=== PATIENT | male | born 1970 | race Caucasian/White ===

== ENCOUNTER 2017-12-24 20:33 | Emergency (ER) | payer OTHER ==
[~2017-12-24] VITALS: Ht 177.8 cm; Wt 116.4 kg
[~2017-12-24 20:33] MED LIST: GLIM2TAB PO; INFL100V IV; LISI-338 PO; METF500T PO
--- NOTE | 2017-12-24 20:59 | ED.ADGEN ---
Past History Past Medical History: Arthritis Past Surgical History: No Surgical History Smoking: Non-smoker Alcohol Use: None Drug Use: None Adult General Chief Complaint Chief Complaint LLQ pain HPI HPI Patient was well until hour ago when he had sudden onset of left lower quadrant pain. Pain was sharp, constant, unrelenting, 9/10 severity. Pain is non radiating. He's had nausea associated with the pain, no vomiting. He's noted a change in color of his urine. His urine is more dark. He has no prior history of kidney stones. Review of Systems Review of Systems Constitutional: Denies fever or chills Eyes: Denies change in visual acuity, redness, or eye pain HENT: Denies nasal congestion or sore throat Respiratory: Denies cough or shortness of breath Cardiovascular: Denies chest pain or palpitations GI: with LLQ abdominal pain, nausea, no vomiting, bloody stools or diarrhea. No flank pain : Denies dysuria or hematuria Musculoskeletal: Denies back pain or joint pain Integument: Denies rash or skin lesions Neurologic: Denies headache, focal weakness or sensory changes Endocrine: Denies polyuria or polydipsia All other systems were reviewed and found to be within normal limits, except as documented in this note. Current Medications Current Medications Current Medications Medications (Trade) Dose Ordered Sig/[place]ileth Start Time Stop Time Status Last Admin Dose Admin Acetaminophen/ Hydrocodone Bitart (Lortab 5/325) 1 tab 1X ONCE 12/25/17 00:15 12/25/17 00:29 DC 12/25/17 00:26 1 TAB Ceftriaxone Sodium 1 gm/ Sodium Chloride 50 ml @ 100 mls/hr 1X ONCE 12/24/17 22:45 12/24/17 22:45 DC Ceftriaxone Sodium (Rocephin) 1 gm 1X ONCE 12/24/17 22:45 12/24/17 22:46 DC 12/24/17 23:17 1 GM Ketorolac Tromethamine (Toradol 30mg Vial) 30 mg 1X ONCE 12/24/17 21:00 12/24/17 21:01 DC 12/24/17 21:22 30 MG Morphine Sulfate (Morphine 4mg Syringe) 8 mg 1X ONCE 12/24/17 23:00 12/24/17 23:07 DC 12/24/17 23:22 8 MG Ondansetron HCl (Zofran) 4 mg 1X ONCE 12/24/17 21:00 12/24/17 21:01 DC 12/24/17 21:15 4 MG Sodium Chloride 1,000 ml @ 1,000 mls/hr 1X ONCE 12/24/17 23:00 12/24/17 23:59 DC 12/24/17 23:00 1,000 MLS/HR Tamsulosin HCl (Flomax) 0.4 mg 1X ONCE 12/24/17 22:45 12/24/17 22:46 DC 12/24/17 23:16 0.4 MG Allergies Allergies Allergies Coded Allergies Type Severity Reaction Last Updated Verified No Known Drug Allergies 11/02/14 No Physical Exam Physical Exam Constitutional: Well developed, well nourished, no acute distress, non-toxic appearance. HENT: Normocephalic, atraumatic, bilateral external ears normal, oropharynx moist, no oral exudates, nose normal. Eyes: PERRLA, EOMI, conjunctiva normal, no discharge. Neck: Normal range of motion, no tenderness, supple, no stridor. Cardiovascular:Heart rate regular rhythm, no murmur Lungs & Thorax: Bilateral breath sounds clear to auscultation Abdomen: Bowel sounds normal, soft, with LLQ tenderness, no masses, no pulsatile masses. Skin: Warm, dry, no erythema, no rash. Back: No tenderness, no CVA tenderness. Extremities: No tenderness, no cyanosis, no clubbing, ROM intact, no edema. Neurologic: Alert and oriented X 3, normal motor function, normal sensory function, no focal deficits noted. Psychologic: Affect normal, judgement normal, mood normal. Current Patient Data Vital Signs Vital Signs Date Time Temp Pulse Resp B/P (MAP) Pulse Ox O2 Delivery O2 Flow Rate FiO2 12/25/17 00:26 19 97 Room Air 12/25/17 00:25 62 149/83 (105) 12/24/17 23:30 2.0 12/24/17 20:34 97.8 Lab Results Laboratory Tests Test 12/24/17 20:45 12/24/17 21:12 Urine Collection Type Unknown Urine Color Brown Urine Clarity Bloody Urine pH 7.0 Urine Specific [place] 1.025 Urine Protein >100 mg/dl (NEG-TRACE) Urine Glucose (UA) Neg mg/dL (NEG) Urine Ketones (Stick) Trace mg/dL (NEG) Urine Blood Large (NEG) Urine Nitrite Neg (NEG) Urine Bilirubin Neg (NEG) Urine Urobilinogen Dipstick 1 mg/dL (0.2 mg/dL) Urine Leukocyte Esterase Neg (NEG) Urine RBC >40 /HPF (0-2) Urine WBC 1-4 /HPF (0-4) Urine Squamous Epithelial Cells Occ /LPF Urine Amorphous Sediment Present /HPF Urine Bacteria 0 /HPF (0-FEW) White Blood Count 11.2 x10^3/uL (4.0-11.0) H Red Blood Count 5.69 x10^6/uL (4.30-5.70) Hemoglobin 16.4 g/dL (13.0-17.5) Hematocrit 47.0 % (39.0-53.0) Mean Corpuscular Volume 83 fL (79-100) Mean Corpuscular Hemoglobin 29 pg (25-35) Mean Corpuscular Hemoglobin Concent 35 g/dL (31-37) Red Cell Distribution Width 13.3 % (11.5-14.5) Platelet Count 263 x10^3/uL (140-400) Neutrophils (%) (Auto) 54 % (31-73) Lymphocytes (%) (Auto) 35 % (24-48) Monocytes (%) (Auto) 9 % (0-9) Eosinophils (%) (Auto) 2 % (0-3) Basophils (%) (Auto) 1 % (0-3) Neutrophils # (Auto) 6.0 x10^3uL (1.8-7.7) Lymphocytes # (Auto) 3.9 x10^3/uL (1.0-4.8) Monocytes # (Auto) 1.0 x10^3/uL (0.0-1.1) Eosinophils # (Auto) 0.2 x10^3/uL (0.0-0.7) Basophils # (Auto) 0.1 x10^3/uL (0.0-0.2) Sodium Level 140 mmol/L (136-145) Potassium Level 4.8 mmol/L (3.5-5.1) Chloride Level 105 mmol/L (98-107) Carbon Dioxide Level 27 mmol/L (21-32) Anion Gap 8 (6-14) Blood Urea Nitrogen 21 mg/dL (8-26) Creatinine 0.9 mg/dL (0.7-1.3) Estimated GFR (Cockcroft-Gault) 90.8 BUN/Creatinine Ratio 23 (6-20) H Glucose Level 129 mg/dL (70-99) H Calcium Level 9.4 mg/dL (8.5-10.1) Total Bilirubin 0.7 mg/dL (0.2-1.0) Aspartate Amino Transferase (AST) 67 U/L (15-37) H Alanine Aminotransferase (ALT) 111 U/L (16-63) H Alkaline Phosphatase 123 U/L (46-116) H Total Protein 7.6 g/dL (6.4-8.2) Albumin 4.1 g/dL (3.4-5.0) Albumin/Globulin Ratio 1.2 (1.0-1.7) Lipase 95 U/L (73-393) EKG EKG [] Radiology/Procedures Radiology/Procedures [address] [id number] IMAGING REPORT Signed PATIENT: KYREE HUNT ACCOUNT: [id number] : 1970 LOCATION: ER AGE: 47 SEX: M EXAM STATUS: REG ER ORD. PHYSICIAN: AIDA RICHARDS MD REASON: Left flank pain PROCEDURE: CT ABDOMEN PELVIS WO CONTRAST PQRS Compliance statement: One or more of the following individualized dose reduction techniques were utilized for this examination: 1. Automated exposure control. 2. Adjustment of the mA and/or kV according to patient size. 3. Use of iterative reconstruction technique. Indication:LLQ ABDOMINAL PAIN
NO HX OF STONE IN PAST TECHNIQUE: CT abdomen and pelvis without IV contrast with multiplanar reformats. COMPARISON: None FINDINGS: Limited evaluation of solid abdominal and pelvic organs due to lack of IV contrast. Heart is normal in size. No pericardial or pleural effusion. Clear lung bases. Noncontrast appearance of the liver, spleen, gallbladder, pancreas, adrenals within normal limits. 2.6 cm low attenuating lesion is seen in the interpolar right kidney demonstrating fluid density compatible with simple cysts. 5 mm stone is seen in the distal left ureter causing mild hydroureteronephrosis. No nephrolithiasis. Small bilateral fat-containing hernia. No enlarged retroperitoneal or pelvic adenopathy. No bowel obstruction. Urinary bladder demonstrates no radiopaque stone. There is subtle lucency seen along the anterior urinary bladder wall. No perivesical inflammatory changes. The prostate and seminal vesicles show no large mass. No suspicious bony lesion. IMPRESSION: 1. Obstructing 5 mm stone in the left distal ureter. 2. Subtle lucency seen along the anterior urinary bladder wall which may represent submucosal fat infiltration or emphysema. Clinically correlate with urinalysis for cystitis. Electronically signed by: Andrew Brandon DO (12/24/2017 10:07 PM) [facility] DICTATED AND SIGNED BY: ANDREW BRANDON DO DATE: 12/24/172201 CC: AIDA RICHARDS MD; HECTOR SHIN MD ~ Course & Med Decision Making Course & Med Decision Making Emergency department course Patient presents with left lower abdominal pain DDx-the stone, diverticulitis, colitis, constipation, UTI Patient was stable in the emergency department, improved after IV Toradol, morphine, normal saline and Zofran. Patient had near resolution of his pain. Labs were remarkable for mild leukocytosis and slightly elevated LFTs. UA showed hematuria. CT abdomen and pelvis without contrast showed left distal UVJ stone 5 mm with bladder wall motion consistent with cystitis. Patient was given Rocephin IV and urine sent for culture 23:40 Patient improved after second dose of morphine abdominal pain which from 7/10 to 4/10 severity. Patient will follow-up with outpatient urology evaluation with Dr. Kyree Ochoa. Patient was given prescriptions for Flomax, Keflex, [place], Motrin and Zofran. Final Impression Final Impression Clinical Impression Left renal colic Left ureteral stone Dragon Disclaimer Dragon Disclaimer This electronic medical record was generated, in whole or in part, using a voice recognition dictation system. Departure Departure: Impression: Primary Impression: Left ureteral calculus Additional Impression: Renal colic on left side Disposition: 01 HOME, SELF-CARE Condition: STABLE Referrals: KYREE OCHOA MD Follow-up topmorrow for further evaluation Patient Instructions: Diet for Kidney Stones, Kidney Stones, [id number] Additional Instructions: Follow-up tomorrow for further evaluation If you develop worse pain, vomiting, fevers return to the emergency department immediately Scripts Cephalexin (KEFLEX) 500 Mg Capsule 500 MG PO TID for 7 Days, #21 CAP Prov: AIDA RICHARDS MD 12/24/17 Ondansetron Hcl (ZOFRAN) 4 Mg Tablet 1 TAB PO Q6HRS, #9 TAB Prov: AIDA RICHARDS MD 12/24/17 Tamsulosin Hcl (FLOMAX) 0.4 Mg Cap.er.24h 1 CAP PO DAILY, #10 CAP 0 Refills Prov: AIDA RICHARDS MD 12/24/17 Ibuprofen (IBUPROFEN) 800 Mg Tablet 800 MG PO TIDWMEALHC for 5 Days, #15 MG Prov: AIDA RICHARDS MD 12/24/17 Hydrocodone Bit/Acetaminophen (NORCO 5-325 TABLET) 1 Each Tablet 1 TAB PO PRN Q6HRS PRN for PAIN for 5 Days, #20 TAB 0 Refills Prov: AIDA RICHARDS MD 12/24/17 AIDA RICHARDS MD Dec 24, 2017 20:59
[2017-12-24] MEDS ORDERED: MORPHINE SULFATE 4 MG/ML DISP.SYRIN. IV ONE ×2 (21:00→23:00)
[2017-12-24] MEDS ORDERED: IV NORMAL SALINE 1,000ML 1,000 ML IV ONE ×2 (21:00→23:00)
[2017-12-24] MEDS ORDERED: ONDANSETRON PF 4 MG/2 ML VIAL. IV ONE (21:00)
[2017-12-24] MEDS ORDERED: KETOROLAC 30 MG/ML VIAL. IV ONE (21:00)
[2017-12-24 21:19] LABS: COLOR,URINE BROWN
[2017-12-24 21:20] LABS: BACTERIA,URINE 0 /HPF (0-FEW); BILIRUBIN,URINE NEG (NEG); CLARITY,URINE BLOODY; GLUCOSE,URINE NEG (NEG); NITRITE,URINE NEG (NEG); RBC,URINE >40 /HPF (0-2); SQUAMOUS EPITHELIAL CELL,UR OCC /LPF; UROBILINOGEN,URINE 1 mg/dL (0.2 mg/dL)
[2017-12-24 21:21] LABS: AMORPHOUS SEDIMENT,UR PRESENT /HPF
[2017-12-24 21:27] LABS: BASO # 0.1 x10^3/uL (0.0-0.2); BASO % 1 % (0-3); EOS # 0.2 x10^3/uL (0.0-0.7); EOS % 2 % (0-3); HEMOGLOBIN 16.4 g/dL (13.0-17.5); LYMPH # 3.9 x10^3/uL (1.0-4.8); LYMPH % 35 % (24-48); MEAN CORPUSCULAR HEMOGLOBIN 29 pg (25-35); MEAN CORPUSCULAR HGB CONC 35 g/dL (31-37); MEAN CORPUSCULAR VOLUME 83 fL (79-100); MONO % 9 % (0-9); NEUT % 54 % (31-73); PLATELET COUNT 263 x10^3/uL (140-400); RED BLOOD COUNT 5.69 x10^6/uL (4.30-5.70); RED CELL DISTRIBUTION WIDTH 13.3 % (11.5-14.5); WHITE BLOOD COUNT 11.2 x10^3/uL (4.0-11.0)
[2017-12-24 21:42] LABS: ALBUMIN 4.1 g/dL (3.4-5.0); ALBUMIN/GLOBULIN RATIO 1.2 (1.0-1.7); CALCIUM 9.4 mg/dL (8.5-10.1); CREATININE 0.9 mg/dL (0.7-1.3); GFR 90.8; POTASSIUM 4.8 mmol/L (3.5-5.1); TOTAL BILIRUBIN 0.7 mg/dL (0.2-1.0); TOTAL PROTEIN 7.6 g/dL (6.4-8.2)
--- NOTE | 2017-12-24 22:10 | RAD ---
PQRS Compliance statement: One or more of the following individualized dose reduction techniques were utilized for this examination: 1. Automated exposure control. 2. Adjustment of the mA and/or kV according to patient size. 3. Use of iterative reconstruction technique. Indication:LLQ ABDOMINAL PAIN
NO HX OF STONE IN PAST TECHNIQUE: CT abdomen and pelvis without IV contrast with multiplanar reformats. COMPARISON: None FINDINGS: Limited evaluation of solid abdominal and pelvic organs due to lack of IV contrast. Heart is normal in size. No pericardial or pleural effusion. Clear lung bases. Noncontrast appearance of the liver, spleen, gallbladder, pancreas, adrenals within normal limits. 2.6 cm low attenuating lesion is seen in the interpolar right kidney demonstrating fluid density compatible with simple cysts. 5 mm stone is seen in the distal left ureter causing mild hydroureteronephrosis. No nephrolithiasis. Small bilateral fat-containing hernia. No enlarged retroperitoneal or pelvic adenopathy. No bowel obstruction. Urinary bladder demonstrates no radiopaque stone. There is subtle lucency seen along the anterior urinary bladder wall. No perivesical inflammatory changes. The prostate and seminal vesicles show no large mass. No suspicious bony lesion. IMPRESSION: 1. Obstructing 5 mm stone in the left distal ureter. 2. Subtle lucency seen along the anterior urinary bladder wall which may represent submucosal fat infiltration or emphysema. Clinically correlate with urinalysis for cystitis. Electronically signed by: Andrew Brandon DO (12/24/2017 10:07 PM) [facility]
[2017-12-24] MEDS ORDERED: ONDA4TAB7 PO (22:45)
[2017-12-24] MEDS ORDERED: IBUP800T19 PO (22:45)
[2017-12-24] MEDS ORDERED: HYDR-971 PO (22:45)
[2017-12-24] MEDS ORDERED: TAMSULOSIN 0.4 MG CAP.ER.24H. PO ONE (22:45)
[2017-12-24] MEDS ORDERED: CEPH-264 PO (22:45)
[2017-12-24] MEDS ORDERED: cefTRIAXone IV Push 1 GM VIAL. IVP ONE (22:45)
[2017-12-24] MEDS ORDERED: TAMS0.4C97 PO (22:45)
[2017-12-25] MEDS ORDERED: HYDROcodone/APAP 5/325MG 1 TAB TABLET PO ONE (00:15)
[2017-12-25 00:25] VITALS: BP 149/83
== END 2017-12-25 00:38 | disposition home or self-care (01) ==
LOC: ER 20:33
DX: N13.2 Hydronephrosis with renal and ureteral calculous obstruction (principal); M19.90 Unspecified osteoarthritis, unspecified site
CPT/HCPCS: 36415; 74176; 80053; 81001; 83690; 85025; 96374; 96375; 96376; 99285; J0696; J1885; J2270; J2405; J7030